=== PATIENT | male | born 1990 | race Two or more races ===

== ENCOUNTER 2018-09-18 18:51 | Emergency (ER) | payer OTHER ==
[~2018-09-18] VITALS: Ht 180.3 cm; Wt 82.6 kg
[2018-09-18 18:54] VITALS: BP 144/84
--- NOTE | 2018-09-18 18:58 | NUR ---
C-Collar placed by SHARRON Bejarano
[2018-09-18] MEDS ORDERED: IBUPROFEN 800 MG TABLET PO ONE (19:30)
[2018-09-18] MEDS ORDERED: IBUPROFEN 200 MG TABLET ONE (19:48)
[2018-09-18] MEDS ORDERED: ONDANSETRON ODT 4 MG ONE (19:53)
== END 2018-09-18 20:39 | disposition home or self-care (01) ==
LOC: ED 20:20
DX: S16.1XXA Strain of muscle, fascia and tendon at neck level, initial encounter (principal); S29.012A Strain of muscle and tendon of back wall of thorax, initial encounter; V49.49XA Driver injured in collision with other motor vehicles in traffic accident, initial encounter; Y93.89 Activity, other specified; Y92.89 Other specified places as the place of occurrence of the external cause; Y99.8 Other external cause status
CPT/HCPCS: 72072; 72125; 99284